=== PATIENT | male | born 1970 | race African-American/Black ===

== ENCOUNTER → 2017-10-11 | Outpatient (CLI) | payer OTHER ==
--- NOTE | 2017-10-11 14:18 | MR ---
EXAMINATION TYPE: MR lumbar spine wo con DATE OF EXAM: 10/11/2017 COMPARISON: NONE HISTORY: Low back pain TECHNIQUE: Multiplanar, multisequence images of the lumbar spine were acquired. FINDINGS: There is somewhat patchy bone marrow signal throughout the lumbar spine although overall th ere is increased bone marrow signal in comparison to that of the disc spaces. No focal T1/T2 hypointe nse suspicious osseous lesions are seen. Multilevel disc desiccation is present at L3-L4, L4-5 and L5 -S1. Conus medullaris is unremarkable terminating at L1-L2. L1-L2: Normal disc appearance without desiccation. No herniation, protrusion or disc bulging. No ca nal stenosis is present. Foramina are patent bilaterally. L2-L3: Normal disc appearance without desiccation. No herniation, protrusion or disc bulging. No ca nal stenosis is present. Foramina are patent bilaterally. L3-L4: There is a broad-based disc bulge with flattening in the disc posteriorly resulting in minimal bilateral neural foraminal narrowing without spinal canal stenosis. Mild facet arthropathy and ligam entum flavum buckling are also present. L4-L5: There is a left eccentric broad-based disc bulge with left lateral annular tear creating moder ate left neural foraminal stenosis and mild right neural foraminal stenosis. No significant spinal ca nal stenosis is seen and despite mild ligamentum flavum buckling and mild facet arthropathy. L5-S1: There is a small right paracentral disc protrusion/herniation superimposed upon a broad-based disc bulge creating moderate right neural foraminal narrowing. Left neural foramen and spinal canal a re patent. In addition to slight mass effect upon the L5 nerve root on the right there is also slight mass effect upon the forming S1 nerve root. IMPRESSION: 1. Small right paracentral disc protrusion/herniation at L5-S1 resulting in moderate right neural for aminal narrowing with mass effect upon both the L5 and forming S1 right-sided nerve roots. 2. Degenerative disc disease at L3-L4 and L4-L5 creating moderate left neural foraminal narrowing and mild right neural foraminal narrowing at L4-L5 and minimal bilateral neural foraminal narrowing at L 3-L4. 3. No evidence of spinal canal stenosis. 4. Slightly patchy bone marrow signal throughout the lumbar spine without focal osseous suspicious le ángel. Correlate with CBC to evaluate for anemia or myeloproliferative disorders.
== END | disposition home or self-care (01) ==
LOC: RADMRIMAIN 13:19
PROVIDERS: ATTEND Psychiatry & Neurology Neurology
DX: M51.27 Other intervertebral disc displacement, lumbosacral region (principal); M99.73 Connective tissue and disc stenosis of intervertebral foramina of lumbar region; M51.36 Other intervertebral disc degeneration, lumbar region; M53.86 Other specified dorsopathies, lumbar region
CPT/HCPCS: 72148

== ENCOUNTER → 2017-11-15 | Outpatient (CLI) | payer OTHER ==
--- NOTE | 2017-11-15 11:24 | MR ---
EXAMINATION TYPE: MR brain wo con DATE OF EXAM: 11/15/2017 COMPARISON: NONE HISTORY: Dizziness and giddiness / Headache TECHNIQUE: Multiplanar, multisequence images of the brain and brainstem is performed without intravenous contras t. FINDINGS: Diffusion weighted images demonstrate no evidence of a recent infarct or other diffusion ab normality. There is no extra-axial fluid collection. Multiple T2/IR hyperintense foci are scattered throughout the periventricular and subcortical white matter with the largest most confluent on the ri ght periatrial white matter measuring up to 9 mm. No restricted diffusion is seen of these foci. The largest on the left measures 1.0 cm in the frontal lobe in the kovacs radiata. Small normal variant cavum septum pellucidum is incidentally noted. The ventricular system and cisternal spaces are normal in size and appearance. The brain volume is age appropriate. Midline structures demonstrate normal morphology. The craniocervical junction appears within normal limits. The dural venous sinuses appear patent. The globes are intact. In the left maxillary sinus t here is a 1.4 cm anterior mucosal retention cyst and second 1.2 cm mucosal retention cyst in addition to moderate mucosal thickening in the maxillary sinuses are seen. Mild mucosal thickening is seen in the ethmoid sinuses. Scant mucosal thickening is present within the right frontal sinus. Remaining v isualized paranasal sinuses and mastoid air cells are well aerated. The right vertebral artery is nonvisualized and may be extremely diminutive/hypoplastic or occluded. Remaining major intracranial flow voids are maintained. IMPRESSION: 1. No acute infarct, midline shift or mass effect. 2. Right vertebral artery is nonvisualized and may be extremely diminutive/hypoplastic or occluded. C TA head/neck or MRA head/neck study performed for further evaluation. 3. Moderate burden nonspecific white matter change, advanced for the patient's age. This most commonl y relates to sequela of chronic microangiopathy, vascularity or demyelinating disease. 4. Moderate paranasal sinus disease with multiple left maxillary mucosal retention cysts.
== END | disposition home or self-care (01) ==
LOC: RADMRIMAIN 09:52
PROVIDERS: ATTEND Psychiatry & Neurology Neurology
DX: R90.89 Other abnormal findings on diagnostic imaging of central nervous system (principal); R42 Dizziness and giddiness; R51 Headache
CPT/HCPCS: 70551

== ENCOUNTER 2018-07-05 09:19 | Emergency (ER) | payer OTHER ==
[2018-07-05 09:35] VITALS: RESP 18; TEMP 98.1
[2018-07-05] MEDS ORDERED: SODIUM CHLORIDE 0.9% 1,000 ML IV STA ×2 (09:42)
[2018-07-05] MEDS ORDERED: SODIUM CHLORIDE 0.9% 500 ML 500 ML IV STA (09:42)
--- NOTE | 2018-07-05 09:43 | ED ---
Recheck HPI - General Chief Complaint: Recheck/Abnormal Lab/Rx Stated Complaint: hyperglycemia Time Seen by Provider: 07/05/18 09:38 Source: patient, RN notes reviewed, old records reviewed Mode of arrival: ambulatory Limitations: no limitations - History of Present Illness Initial Comments: This is a 47-year-old male the ER for evaluation. Patient does say for evaluation regarding multiple issues, first is his blood sugar secondary to diabetes secondary she was depression secondary to holiday, posttraumatic stress. Patient denies drugs or alcohol today. Patient's been taking medication as prescribed MD Complaint: abnormal lab (Elevated blood sugar) -: days(s) Returns Today for: persistent/worsening pain related to initial visit ( Depression) Symptoms Since Prior Visit: no new symptoms Associated Symptoms: none - Related Data Home Medications Medication Instructions Recorded Confirmed Divalproex [Depakote] 1,000 mg PO HS 11/11/14 07/05/18 [place]-3 Fatty Acids/Fish Oil [Fish 1 cap PO DAILY 11/11/14 07/05/18 Oil 1,000 mg Softgel] Omeprazole [PriLOSEC] 20 mg PO AC-BID 11/11/14 07/05/18 metFORMIN HCL 1,000 mg PO BID 11/11/14 07/05/18 Lisinopril/Hydrochlorothiazide 1 tab PO DAILY 07/05/18 07/05/18 [Zestoretic 20-12.5] Methocarbamol [Robaxin] 1,000 mg PO TID PRN 07/05/18 07/05/18 Prazosin HCl 4 mg PO HS 07/05/18 07/05/18 Sertraline [Zoloft] 100 mg PO DAILY 07/05/18 07/05/18 Ziprasidone [Geodon] 40 mg PO BID 07/05/18 07/05/18 glipiZIDE [Glucotrol] 10 mg PO BID 07/05/18 07/05/18 Allergies Allergy/AdvReac Type Severity Reaction Status Date / Time No Known Allergies Allergy Verified 07/05/18 09:58 Review of Systems ROS Statement: Those systems with pertinent positive or pertinent negative responses have been documented in the HPI. ROS Other: All systems not noted in ROS Statement are negative. 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 Absent: scleral icterus, conjunctival injection, periorbital swelling ENT exam: Present: normal exam, mucous membranes moist Neck exam: Present: normal inspection. Absent: tenderness, meningismus, lymphadenopathy Respiratory exam: Present: normal lung sounds bilaterally. Absent: respiratory distress, wheezes, rales, rhonchi, stridor Cardiovascular Exam: Present: regular rate, normal rhythm, normal heart sounds. Absent: systolic murmur, diastolic murmur, rubs, gallop, clicks GI/Abdominal exam: Present: soft, normal bowel sounds. Absent: distended, tenderness, guarding, rebound, rigid Extremities exam: Present: normal inspection, full ROM, normal capillary refill. Absent: tenderness, pedal edema, joint swelling, calf tenderness Back exam: Present: normal inspection Neurological exam: Present: alert, oriented X3, CN II-XII intact Psychiatric exam: Present: normal affect, normal mood Skin exam: Present: warm, dry, intact, normal color. Absent: rash Course Vital Signs 07/05/18 09:31 Temperature 98.1 F Pulse Rate 117 H Respiratory 18 Rate Blood Pressure 152/92 O2 Sat by Pulse 99 Oximetry - Reevaluation(s) Reevaluation #1: 07/05/18 13:24 Patient was made medically clear for psychiatric evaluation Patient seen and evaluated with psychiatry, deemed safe for discharge home, patient feels safe for discharge home not homicidal or suicidal, does have safe place to go Medical Decision Making - Medical Decision Making 47 male seen evaluated with psychiatry for depression, patient is not suicidal currently can be discharged home. Patient's blood sugars control - Lab Data Result diagrams: 07/05/18 10:02 07/05/18 10:02 Lab Results 07/05/18 07/05/18 07/05/18 Range/Units 10:02 10:02 10:02 WBC (3.8-10.6) k/uL RBC (4.30-5.90) m/uL Hgb (13.0-17.5) gm/dL Hct (39.0-53.0) % MCV (80.0-100.0) fL MCH (25.0-35.0) pg MCHC (31.0-37.0) g/dL RDW (11.5-15.5) % Plt Count (150-450) k/uL Neutrophils % % Lymphocytes % % Monocytes % % Eosinophils % % Basophils % % Neutrophils # (1.3-7.7) k/uL Lymphocytes # (1.0-4.8) k/uL Monocytes # (0-1.0) k/uL Eosinophils # (0-0.7) k/uL Basophils # (0-0.2) k/uL VBG pH 7.41 (7.31-7.41) VBG pCO2 33 L (37-51) mmHg VBG HCO3 20 L (24-28) mmol/L Sodium 140 (137-145) mmol/L Potassium 3.8 (3.5-5.1) mmol/L Chloride 108 H (98-107) mmol/L Carbon Dioxide 20 L (22-30) mmol/L Anion Gap 12 mmol/L BUN 12 (9-20) mg/dL Creatinine 1.08 (0.66-1.25) mg/dL Est GFR (CKD-EPI)AfAm >90 (>60 ml/min/1.73 sqM) Est GFR (CKD-EPI)NonAf 82 (>60 ml/min/1.73 sqM) Glucose 205 H (74-99) mg/dL POC Glucose (mg/dL) (75-99) mg/dL POC Glu Adon ID Calcium 9.2 (8.4-10.2) mg/dL Phosphorus 3.8 (2.5-4.5) mg/dL Magnesium 1.5 L (1.6-2.3) mg/dL Total Bilirubin 0.5 (0.2-1.3) mg/dL AST 25 (17-59) U/L ALT 27 (21-72) U/L Alkaline Phosphatase 35 L (38-126) U/L Total Creatine Kinase 153 (55-170) U/L CK-MB (CK-2) 0.5 (0.0-2.4) ng/mL CK-MB (CK-2) Rel Index 0.3 Troponin I <0.012 (0.000-0.034) ng/mL Total Protein 6.9 (6.3-8.2) g/dL Albumin 4.1 (3.5-5.0) g/dL Urine Color Urine Appearance (Clear) Urine pH (5.0-8.0) Ur Specific [place] (1.001-1.035) Urine Protein (Negative) Urine Glucose (UA) (Negative) Urine Ketones (Negative) Urine Blood (Negative) Urine Nitrite (Negative) Urine Bilirubin (Negative) Urine Urobilinogen (<2.0) mg/dL Ur Leukocyte Esterase (Negative) Acetone, Qual Negative (Negative) 07/05/18 07/05/18 07/05/18 Range/Units 10:02 10:11 11:20 WBC 4.8 (3.8-10.6) k/uL RBC 4.75 (4.30-5.90) m/uL Hgb 14.7 (13.0-17.5) gm/dL Hct 41.0 (39.0-53.0) % MCV 86.5 (80.0-100.0) fL MCH 30.9 (25.0-35.0) pg MCHC 35.8 (31.0-37.0) g/dL RDW 14.6 (11.5-15.5) % Plt Count 189 (150-450) k/uL Neutrophils % 59 % Lymphocytes % 33 % Monocytes % 5 % Eosinophils % 2 % Basophils % 0 % Neutrophils # 2.8 (1.3-7.7) k/uL Lymphocytes # 1.6 (1.0-4.8) k/uL Monocytes # 0.2 (0-1.0) k/uL Eosinophils # 0.1 (0-0.7) k/uL Basophils # 0.0 (0-0.2) k/uL VBG pH (7.31-7.41) VBG pCO2 (37-51) mmHg VBG HCO3 (24-28) mmol/L Sodium (137-145) mmol/L Potassium (3.5-5.1) mmol/L Chloride (98-107) mmol/L Carbon Dioxide (22-30) mmol/L Anion Gap mmol/L BUN (9-20) mg/dL Creatinine (0.66-1.25) mg/dL Est GFR (CKD-EPI)AfAm (>60 ml/min/1.73 sqM) Est GFR (CKD-EPI)NonAf (>60 ml/min/1.73 sqM) Glucose (74-99) mg/dL POC Glucose (mg/dL) 214 H (75-99) mg/dL POC Glu Adon ID Calcium (8.4-10.2) mg/dL Phosphorus (2.5-4.5) mg/dL Magnesium (1.6-2.3) mg/dL Total Bilirubin (0.2-1.3) mg/dL AST (17-59) U/L ALT (21-72) U/L Alkaline Phosphatase (38-126) U/L Total Creatine Kinase (55-170) U/L CK-MB (CK-2) (0.0-2.4) ng/mL CK-MB (CK-2) Rel Index Troponin I (0.000-0.034) ng/mL Total Protein (6.3-8.2) g/dL Albumin (3.5-5.0) g/dL Urine Color Yellow Urine Appearance Clear (Clear) Urine pH 6.0 (5.0-8.0) Ur Specific [place] 1.011 (1.001-1.035) Urine Protein Negative (Negative) Urine Glucose (UA) 3+ H (Negative) Urine Ketones Negative (Negative) Urine Blood Negative (Negative) Urine Nitrite Negative (Negative) Urine Bilirubin Negative (Negative) Urine Urobilinogen <2.0 (<2.0) mg/dL Ur Leukocyte Esterase Negative (Negative) Acetone, Qual (Negative) - EKG Data -: EKG Interpreted by Me (EKG shows sinus rhythm rate of 83, OK 184, QRS 136, QTc 498) Disposition Clinical Impression: Hypoglycemia, Depression Disposition: HOME SELF-CARE Condition: Good Instructions: Depression (ED) Is patient prescribed a controlled substance at d/c from ED?: No Referrals: [facility],Clinic [Primary Care Provider] - 1-2 days
[2018-07-05 10:14] LABS: Glucose,Whole Blood 214 mg/dL (75-99)
[2018-07-05 10:27] LABS: Basophils % (A) 0 %; Eosinophils # (A) 0.1 k/uL (0-0.7); Eosinophils % (A) 2 %; HGB 14.7 gm/dL (13.0-17.5); Lymphocytes # (A) 1.6 k/uL (1.0-4.8); Lymphocytes % (A) 33 %; MCH 30.9 pg (25.0-35.0); MCHC 35.8 g/dL (31.0-37.0); MCV 86.5 fL (80.0-100.0); Mean Platelet Volume 7.2; Monocytes # (A) 0.2 k/uL (0-1.0); Monocytes % (A) 5 %; Neutrophils # (A) 2.8 k/uL (1.3-7.7); Neutrophils % (A) 59 %; Platelet Count 189 k/uL (150-450); RBC 4.75 m/uL (4.30-5.90); RDW 14.6 % (11.5-15.5); WBC 4.8 k/uL (3.8-10.6)
[2018-07-05 10:29] LABS: VBG PH 7.41 (7.31-7.41)
[2018-07-05 10:45] LABS: ALT 27 U/L (21-72); AST 25 U/L (17-59); Albumin 4.1 g/dL (3.5-5.0); Alkaline Phosphatase 35 U/L (38-126); Anion Gap 12 mmol/L; Blood Urea Nitrogen 12 mg/dL (9-20); Calcium 9.2 mg/dL (8.4-10.2); Carbon Dioxide 20 mmol/L (22-30); Chloride 108 mmol/L (98-107); Glucose 205 mg/dL (74-99); Magnesium 1.5 mg/dL (1.6-2.3); Phosphorus 3.8 mg/dL (2.5-4.5); Potassium 3.8 mmol/L (3.5-5.1); Sodium 140 mmol/L (137-145); Total Bilirubin 0.5 mg/dL (0.2-1.3); Total Protein 6.9 g/dL (6.3-8.2)
[2018-07-05 11:04] LABS: Creatine Kinase 153 U/L (55-170)
[2018-07-05 11:17] LABS: Creatine Kinase MB 0.5 ng/mL (0.0-2.4); Troponin I <0.012 ng/mL (0.000-0.034)
[2018-07-05 11:39] LABS: Appearance,Urine Clear (Clear); Bilirubin,Urine Negative (Negative); Blood,Urine Negative (Negative); Color,Urine Yellow; Glucose,Urine (UA) 3+ (Negative); Ketones,Urine Negative (Negative); Leukocyte Esterase,Urine Negative (Negative); Nitrite,Urine Negative (Negative); Protein,Urine Negative (Negative); Specific Gravity,Urine 1.011 (1.001-1.035); Urobilinogen,Urine <2.0 mg/dL (<2.0)
[2018-07-05 14:02] VITALS: BP 136/72; PULSE 84
== END 2018-07-05 14:35 | disposition home or self-care (01) ==
LOC: EC 09:19
DX: E11.649 Type 2 diabetes mellitus with hypoglycemia without coma (principal); F32.9 Major depressive disorder, single episode, unspecified; I10 Essential (primary) hypertension; F43.10 Post-traumatic stress disorder, unspecified; F17.200 Nicotine dependence, unspecified, uncomplicated; Z79.899 Other long term (current) drug therapy; Z79.84 Long term (current) use of oral hypoglycemic drugs
CPT/HCPCS: 36415; 80053; 81003; 82009; 82550; 82553; 82803; 83735; 84100; 84484; 85025; 87086; 93005; 96360; 96361; 99284

== ENCOUNTER → 2018-09-05 | Outpatient (CLI) | payer OTHER ==
[2018-09-05 11:32] VITALS: BP 105/74; PULSE 75; RESP 18
--- NOTE | 2018-09-05 12:20 | P.PAINCN ---
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 He denies any motor or sensory deficit he denies any change in the bowel movement or urination. 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 Past Anesthesia/Blood Transfusion Reactions: No Reported Reaction Past Psychological History: PTSD Smoking Status: Never smoker Past Alcohol Use History: None Reported Past Drug Use History: None Reported Medications and Allergies Home Medications Medication Instructions Recorded Confirmed Type Divalproex [Depakote] 1,000 mg PO HS 11/11/14 09/05/18 History [place]-3 Fatty Acids/Fish Oil [Fish 1 cap PO DAILY 11/11/14 09/05/18 History Oil 1,000 mg Softgel] Omeprazole [PriLOSEC] 20 mg PO AC-BID 11/11/14 09/05/18 History metFORMIN HCL 1,000 mg PO BID 11/11/14 09/05/18 History Lisinopril/Hydrochlorothiazide 1 tab PO DAILY 07/05/18 09/05/18 History [Zestoretic 20-12.5] Prazosin HCl 6 mg PO HS 07/05/18 09/05/18 History Sertraline [Zoloft] 200 mg PO DAILY 07/05/18 09/05/18 History Ziprasidone [Geodon] 60 mg PO BID 07/05/18 09/05/18 History glipiZIDE [Glucotrol] 10 mg PO BID 07/05/18 09/05/18 History Acetaminophen 650 mg PO DIRECTED PRN 09/05/18 09/05/18 History Saxagliptin HCl [Onglyza] 5 mg PO DAILY 09/05/18 09/05/18 History Verapamil Sr [Isoptin Sr] 180 mg PO DAILY 09/05/18 09/05/18 History Allergies Allergy/AdvReac Type Severity Reaction Status Date / Time No Known Allergies Allergy Verified 09/05/18 11:01 Physical Exam Vitals: Vital Signs Pulse Resp BP Pulse Ox 09/05/18 11:21 75 18 105/74 98 Intake and Output 09/04/18 09/05/18 09/05/18 22:59 06:59 14:59 Other: Weight 96.162 kg Social history : not smoker , NO ETOH , NO Illegal drugs use . Review of Systems : 1- Constitutional : no chills , no fever , no night sweats , 2- Ears : no ear discharge , no change in hearing 3-Nose, Mouth ,Throat ; no bleeding gums, no sore throat , no epistaxis , 4-Cardiovascular : Denies chest pain, , no orthopnea , no palpitation 5-Respiratory : Denies cough , no dyspnea , no hemoptysis 6-Gastrointestinal :, no change in bowel habits , no coffee- ground emesis . 7-Genitourinary : No hematuria , no discharge , no incontinence, 8-Musculoskeletal : No gait dysfunction , report low back pain , 9- Neurological : no ataxia , no tremor , no sezure , 10-Psychatric , no suicidal ideation no hallucination 11- Endocrine : no cold intolerence , no polyuria , no polydypsia , 12-Hematologic : no easy bleeding , no easy brusing , 13-Allergic / immunology : no angioedema , no wheezing ,no allergic rhinitis 14-Integumentary : no brttle nails , no change hair / nails , no foot/leg ulcers . Physical Examinations : 1-Constitutional : Cooperative , not in acute distress . 2-HEENT : nech ; supple , no Lymphadenopathy , no Thyromegaly , :eyes , no icterus, no photophobia . ENT : , normal oropharynx , no Thrush 3- Respiratory : Chest clear to auscultations Bilaterally , no wheezing 4- Cardiovascular : regular rate and rhythem , S1 , S2 , no S3 , no S4. 5- Gastrointestinal: abdomen soft no tenderness , no organomegally . 6- Genitourinary : Defferred . 7-Integumentary : No cellulitis , no ulcers , normal skin turgor , no cyanotic . 8- neurologic : Cranial nerve II to XII intact , no focal neurological deffecit 9-psychatric : alert , oriented X 3 , appropriate affect , intact judgment and insight . 10-Lymphatic : no Lymphadenopathy. 11- musculoskeltal: normal gait Lumber spine moter stegnth lower extremities ,thigh and legs 5/5 Right side , 5/5 Left side deep tendon reflexes : normal Knee Jerk , normal ankle Jerk positive lumber facet Loading Test on the right side only , negative on the left side Range of motion of the lumbar spine Flexion 60 degrees, extension 10 degrees strait leg raising test negative bilaterally Fabere test negative bilaterally Sever tenderness over the Sacroiliac joint on the Right side . Results Comments: MRI of the lumbar spine done at [facility] showed multilevel lumbar bulging disc disease and multilevel lumbar facet arthropathy and L5-S1 disc herniation Assessment and Plan Plan: Assessment and plan= chronic severe low back pain secondary to multifactorial causes, lumbar spondylosis with lumbar facet arthropathy, lumbar disc herniation And lumbar bulging disc disease. The clinical picture , and the physical examination supported that most of the pain is coming From the facetogenic component, I will schedule patient to have right sided diagnostic medial branch block lumbar area at C4/L4-L5/L5-S1 , x2 and benefits positive then we will proceed with a radiofrequency ablation of the medial branch lumbar area( RIGHT SIDE ) Time with Patient: Greater than 30 PQRS Measure Charge Sheet Measure #130: Documentation of Current Meds in Medical Chart: Patient's medications documented in chart Measure #226: Tobacco Use: Screen & Cessation Intervention: Pt not a tobacco user Measure #111: Pneumonia Vaccination: Pneumococcal vaccine NOT administered or previously given Measure #47: Advance Care Plan: Advance care planning discussed & documented, pt chose/unable to give Measure #412: Opioid Treatment Agreement: No documentation of signed opioid treatment agreement Measure #408: Opioid Therapy Follow-up Evaluation: Patient had NO f/u eval minimum every 3 months during opioid therapy Measure #317: Preventitive Care & Scrn High Bld Press & F/U: Normal blood pressure, f/u not required Measure #128: Body Mass Index (BMI) Screening & Follow-up: BMI documented ABOVE normal parameters - f/u documented Measure #131: Pain Assessment & Follow-up: Pain positive & plan documented, Follow-up scheduled Measure #431: Unhealthy Alcohol Use Preventative Care & Scrn: Patient not identified as an unhealthy alcohol user PQRS Narrative: Smoking Status Never smoker Do You Want the Pneumonia No Vaccine AT THIS TIME? Blood Pressure 105/74 Pain Intensity [Right Lower 9 Back] Hx Alcohol Use (MH) Yes: social Home Medications: Ambulatory Orders Divalproex [Depakote] 1,000 mg PO HS 11/11/14 [place]-3 Fatty Acids/Fish Oil [Fish Oil 1,000 mg Softgel] 1 cap PO DAILY Omeprazole [PriLOSEC] 20 mg PO AC-BID 11/11/14 metFORMIN HCL 1,000 mg PO BID 11/11/14 Lisinopril/Hydrochlorothiazide [Zestoretic 20-12.5] 1 tab PO DAILY 07/05/18 Prazosin HCl 6 mg PO HS 07/05/18 Sertraline [Zoloft] 200 mg PO DAILY 07/05/18 Ziprasidone [Geodon] 60 mg PO BID 07/05/18 glipiZIDE [Glucotrol] 10 mg PO BID 07/05/18 Acetaminophen 650 mg PO DIRECTED PRN 09/05/18 Saxagliptin HCl [Onglyza] 5 mg PO DAILY 09/05/18 Verapamil Sr [Isoptin Sr] 180 mg PO DAILY 09/05/18
== END ==
LOC: PNWHC3 10:44
PROVIDERS: ATTEND Specialist
DX: M51.26 Other intervertebral disc displacement, lumbar region (principal); M47.816 Spondylosis without myelopathy or radiculopathy, lumbar region; M46.96 Unspecified inflammatory spondylopathy, lumbar region; E11.9 Type 2 diabetes mellitus without complications; E78.5 Hyperlipidemia, unspecified; I10 Essential (primary) hypertension; Z79.899 Other long term (current) drug therapy; Z79.84 Long term (current) use of oral hypoglycemic drugs
CPT/HCPCS: 99211

== ENCOUNTER 2018-09-18 09:47 | Day surgery (SDC) | payer OTHER ==
[~2018-09-18 09:47] MED LIST: SODIUM CHLORIDE 0.9% 500 ML 500 ML IV SCH
[2018-09-18 10:06] VITALS: RESP 16; TEMP 97.9
[2018-09-18 10:07] LABS: Glucose,Whole Blood 162 mg/dL (75-99)
[2018-09-18] MEDS ORDERED: LACTATED RINGERS 1,000 ML IV ONE (10:08)
[2018-09-18] MEDS ORDERED: LIDOCAINE 1% 20 ML VIAL (10MG/ML) FOR IV START INTRADERMA ONE (10:09)
--- NOTE | 2018-09-18 10:39 | P.PCN ---
Date of Procedure: 09/18/18 Procedure(s) Performed: PREOPERATIVE DIAGNOSIS : 1- Lumbar spondylosis with Facet Arthropathy without myelopathy . POSTOPERATIVE DIAGNOSIS: 1- Lumbar spondylosis with Facet Arthropathy without myelopathy . PROCEDURE: Diagnostic Right L3 -4 , L4 -5 , and L5-S1 medial branch block under fluoroscopy ANESTHESIA: Local with Ropivacain 0.5 % 3 ml , moderate sedation with intravenous Versed 2 mg and Fentanyl 50 mcg. EBL: Minimal COMPLICATION: None. IV FLUIDS: 100 mL of normal saline. PROCEDURE INDICATION: Chronic low back pain secondary to Facet arthropathy unresponsive to conservative treatment. PROCEDURE DESCRIPTION: the patient was seen and identified in the preop holding area , risks and benefits and possible complications of the procedure and alternative were discussed with the patient, and the patient agreed to proceed with the procedure and signed the consent IV was started and vital signs monitored during the procedure and fluoroscopy was used to maximize the benefit and accuracy of the needle placement, and sedation was given to decrease patient anxiety, patient was taken to the procedure room and placed in prone position vital signs monitored in the back prepped with chlorhexidine X3 then under strict sterile technique using a right oblique fluoroscopy ,the junction of the transverse process and the superior articulating process of the right L3- 4 , L4- 5, and L5-S1 vertebra which corresponding to the fluoroscopy image of the eye of the Urban dog on the block side for the medial branches and subsequently , after local infiltration of skin and subcu tissuies with Ropivacaine 0.5 % , one mL at each level , then 22-gauge Quincke-type needles , 3 needle was used , each one of them placed at the junction of the base of the transverse process and the superior articular process at the appropriate level, and the needle was advanced until the periosteum contacted, needle placement confirmed with AP oblique and lateral view and after appropriate needle placement confirmed, and after negative aspiration for heme and CSF and there was no paresthesia 1-1/2 mL of Ropivacaine 0.5% mixed with 40 mg Depo-Medrol , then half mL injected at each level after negative aspiration the needle subsequently removed.. At the end of the procedure and the needles removed and a bandage applied after the skin was cleaned the cleaning solution patient taken to recovery room in stable condition and monitors in the recovery room for 20-30 minutes and discharged home in stable condition after discharge criteria met and patient will follow up with the pain clinic in 2-4 weeks
[2018-09-18] MEDS ORDERED: IV FLUID CONTINUATION 400 ML IV ONE (10:45)
[2018-09-18 11:07] VITALS: BP 140/87
[2018-09-18 11:09] VITALS: PULSE 91
--- NOTE | 2018-09-18 12:56 | FL ---
Fluoroscopy INDICATION: Pain FINDINGS: Fluoroscopy time: 6 seconds. Images obtained: 2. IMPRESSIONS: 1. Documentation of fluoroscopy.
== END 2018-09-18 11:15 | disposition home or self-care (01) ==
LOC: ORPAIN 09:47
PROVIDERS: ATTEND Specialist
DX: G89.29 Other chronic pain (principal); M47.816 Spondylosis without myelopathy or radiculopathy, lumbar region; M51.26 Other intervertebral disc displacement, lumbar region; E11.9 Type 2 diabetes mellitus without complications; E78.5 Hyperlipidemia, unspecified; I10 Essential (primary) hypertension; F43.10 Post-traumatic stress disorder, unspecified; G43.909 Migraine, unspecified, not intractable, without status migrainosus; Z79.84 Long term (current) use of oral hypoglycemic drugs; Z79.899 Other long term (current) drug therapy
CPT/HCPCS: 64493; 64494; 64495; J2250; J1030; J3010

== ENCOUNTER → 2018-09-20 | Outpatient (CLI) | payer MEDICARE, OTHER ==
--- NOTE | 2018-09-20 08:13 | MR ---
EXAMINATION TYPE: MR brain/cspine wo DATE OF EXAM: 09/20/2018 COMPARISON: MRI Brain dated 11/15/2017. HISTORY: Migraines Headaches / Neuropathy with pain or weakness into both arms and fingers per patien t. TECHNIQUE: Multiplanar, multisequence imaging of the cervical spine, brain, and brainstem is performe d without IV contrast. FINDINGS: BRAIN: Diffusion weighted images demonstrate no evidence of a recent infarct or other diffusion abnormality. There is no worrisome extra-axial fluid collection. The ventricular system and cisternal spaces are normal in size and appearance. The brain volume is age appropriate. There is redemonstration of scat tered foci T2 hyperintensity throughout the superficial, deep, and periventricular white matter. I es timate 50-70 scattered small lesions with largest lesion being a elongated 10 mm left frontal lesion or 2 adjacent lesions axial image 26. No significant change from prior. Midline structures demonstrate normal morphology. The craniocervical junction appears within normal limits. There is nonvisualization of distal right vertebral artery consistent with hypoplasia or judy edly small caliber. Few small mucous retention cysts or polyps and mucosal thickening inferior aspect bilateral maxillary sinuses remains present without significant interval change. The globes are inta ct bilaterally. IMPRESSION: Fairly moderate to severe nonspecific white matter changes may be related to altered vasc ular flow as product of chronic migraine headaches, other etiologies such as demyelinating disease ne eds to be excluded in patient of this age. Correlate clinically. Chronic inferior maxillary sinus dis ease redemonstrated. Overall no significant change from prior MRI. C-SPINE: Exam noted suboptimal as there is motion artifact degradation present. FINDINGS: Sagittal images of the cervical spine show the craniocervical junction to appear within nor mal limits. The cervical and upper thoracic spinal cord is normal in course, caliber, and signal. V ertebral alignment is anatomic. The vertebral body and intravertebral disk heights are normal. No l arge posterior disc herniations are seen on sagittal images. The bone marrow signal intensity is with in normal limits. No significant spurring is seen. Axial images at the C3-C4 level show uncovertebral facet degenerative changes bilaterally causing mil d to moderate left greater than right bilateral neural foraminal narrowing. Axial images at C5-C6 and C6-C7 level show tiny central disc protrusions minimally effacing anterior thecal sac, at C6-C7 level there is left foraminal component causing mild to moderate left-sided neur al foraminal narrowing on axial image 17. Other cervical levels felt within normal limits. IMPRESSION: Mild multilevel degenerative changes as detailed above.
== END | disposition home or self-care (01) ==
LOC: RADMRIMAIN 06:14
PROVIDERS: ATTEND Family Medicine
DX: G43.909 Migraine, unspecified, not intractable, without status migrainosus (principal); M47.812 Spondylosis without myelopathy or radiculopathy, cervical region; G62.9 Polyneuropathy, unspecified; R90.89 Other abnormal findings on diagnostic imaging of central nervous system
CPT/HCPCS: 70551; 72141

== ENCOUNTER 2018-09-27 06:57 | Day surgery (SDC) | payer MEDICARE, OTHER ==
[2018-09-26 12:28] VITALS: BMI 29.1
[~2018-09-27 06:57] MED LIST changes: +LACTATED RINGERS 1,000 ML IV SCH; +LIDOCAINE 1% 20 ML VIAL (10MG/ML) FOR IV START INTRADERMA PRN; +MIDAZOLAM (PF) 2 MG/2 ML VIAL IV PRN; -SODIUM CHLORIDE 0.9% 500 ML 500 ML IV SCH
[2018-09-27 07:28] VITALS: RESP 16; TEMP 98.6
[2018-09-27 07:31] LABS: Glucose,Whole Blood 164 mg/dL (75-99)
[2018-09-27 08:54] LABS: Glucose,Whole Blood 180 mg/dL (75-99)
[2018-09-27 09:05] VITALS: BP 135/90; PULSE 78
--- NOTE | 2018-09-27 10:12 | P.PCN ---
Date of Procedure: 09/27/18 Procedure(s) Performed: Procedures: 1. Esophagogastroduodenoscopy and biopsy. 2. Colonoscopy and biopsy. Preoperative diagnosis: Chronic reflux symptoms and rectal bleeding. Postoperative diagnosis: 1. Antral gastritis with no active bleeding at the time of the exam. 2. Biopsies obtained from the duodenum, antrum and esophagus. 2. Diverticulosis on the right side with no evidence of acute diverticulitis or strictures. 3. Biopsies obtained from the right colon. 4. Low-grade internal hemorrhoids without bleeding at the time of this exam. Preparation: HalfLytely prep. Sedation: Was provided by anesthesia. Brief clinical history: The patient is a 48-year-old male who is scheduled for this evaluation because of chronic reflux symptoms as well as blood in the stools and altered bowel habits with intermittent diarrhea of recent onset. He , apparently, has been having rectal pain as well No other alarm symptoms. This would be his first upper and lower endoscopy. Procedure: With the patient on his left lateral decubitus position and after informed consent and adequate sedation, I passed the Olympus-GIF H190 video upper endoscope through the cricopharyngeus down the esophagus. GE junction was around 42-43 cm from the incisors and there was no definite hiatal hernia or any obvious esophagitis or complicated reflux disease. The endoscope was then passed into the stomach which was insufflated with air and inspected in detail including the retroflex view in the cardia. There was mottling and erythema in the antrum and scattered erosions and occasional small ulceration with no active bleeding. Pyloric channel did not show any ulcers. Duodenal bulb, post bulbar area and descending duodenum appeared within normal limits. Because of his symptoms, I obtained biopsies from the duodenum, antrum and esophagus then the endoscope was withdrawn and I proceeded with the colonoscopy. Perianal area did not show any fissures or fistulas. There were no masses felt on digital rectal examination. The Olympus CFH 190L video colonoscope was then inserted in the rectum in the usual fashion and advanced to the cecum. The preparation was less than ideal. There were multiple diverticular orifices seen scattered on the right side but no evidence of acute diverticulitis or strictures. The mucosa appeared healthy. No polyps or tumors were seen. There was no evidence of bleeding. I retroflexed the endoscope in the rectum before the endoscope was withdrawn. Low-grade internal hemorrhoids were noted with no evidence of bleeding. The patient tolerated the procedure well. Plan: The patient was reassured. Will await biopsy results. Discussed dietary measures.
== END 2018-09-27 09:52 | disposition home or self-care (01) ==
LOC: ORWHC2ENDO 06:57
DX: K21.0 Gastro-esophageal reflux disease with esophagitis (principal); K57.30 Diverticulosis of large intestine without perforation or abscess without bleeding; K64.8 Other hemorrhoids; K29.70 Gastritis, unspecified, without bleeding; E11.9 Type 2 diabetes mellitus without complications; I10 Essential (primary) hypertension; E78.5 Hyperlipidemia, unspecified; F32.9 Major depressive disorder, single episode, unspecified; F43.10 Post-traumatic stress disorder, unspecified; N40.0 Benign prostatic hyperplasia without lower urinary tract symptoms; M19.90 Unspecified osteoarthritis, unspecified site; G43.909 Migraine, unspecified, not intractable, without status migrainosus; Z79.899 Other long term (current) drug therapy; Z79.84 Long term (current) use of oral hypoglycemic drugs; Z86.718 Personal history of other venous thrombosis and embolism
CPT/HCPCS: 43239; 45380; 88305

== ENCOUNTER 2018-10-02 08:31 | Day surgery (SDC) | payer MEDICARE, OTHER ==
[2018-09-28 13:35] VITALS: BMI 29.1
[2018-10-02 08:50] VITALS: RESP 18; TEMP 97.4
[2018-10-02] MEDS ORDERED: LACTATED RINGERS 1,000 ML IV ONE (09:19)
[2018-10-02] MEDS ORDERED: LIDOCAINE 1% 20 ML VIAL (10MG/ML) FOR IV START INTRADERMA ONE (09:20)
--- NOTE | 2018-10-02 09:25 | P.PCN ---
Date of Procedure: 10/02/18 Anesthesia: MAC (Conscious sedation) Description of Procedure: Surgeon: Alin Morales MD. Procedure: Right lumbar Medial Branch Block at L3/4, L4/5, and L5/S1 #2 IV Sedation with: 2 mg of Versed Anesthesia: Conscious sedation Given for: Anxiety and fear of needles. The patient was seen and examined in the [facility]. Procedure risks and benefits were fully reviewed with the patient. The patient understands this is a diagnostic if local only is used, as will be the case today. The goal of the procedure is to inject medication into the medial branch or small nerves that go into the facet joints. In this way, we can hopefully identify which of these joints, if any, may be contributing to their pain. Informed consent for procedure was obtained. The patient was taken into the office fluoroscopy procedure room and placed prone on the table. A pillow was placed under the abdomen to reduce lumbar lordosis. Vital signs were closely monitored during the procedure. The skin over the area was prepped with Betadine X 3 and draped in usual sterile manner. Sterile technique was observed throughout procedure. Under biplanar fluoroscopic guidance, the target injection area of the L3, L4, L5 and sacral ala bilateral were targeted. A 25 gauge 31/2 inch spinal needle was then placed at the most medial and superior aspect of the transverse process near the "eye of the Urban dog". Aspiration for blood was negative. 1 cc of 0.5% marcaine was injected into the targeted areas separately. Mumford were withdrawn intact. No complications were noted during the procedure. The patient tolerated the procedure well. The patient was placed in supine position and transferred to the recovery area for observation and remained stable until discharged home. Home discharge instructions were given to the patient by the staff. The patient will schedule a follow up as directed.
[2018-10-02 09:38] LABS: Glucose,Whole Blood 285 mg/dL (75-99)
[2018-10-02 09:38] LABS: Glucose,Whole Blood 278 mg/dL (75-99)
[2018-10-02 09:38] LABS: Glucose,Whole Blood 268 mg/dL (75-99)
[2018-10-02] MEDS ORDERED: IV FLUID CONTINUATION 800 ML IV ONE (09:39)
[2018-10-02 10:12] VITALS: BP 122/78; PULSE 80
--- NOTE | 2018-10-02 10:12 | FL ---
EXAMINATION TYPE: FL guided pain mgmt statistic DATE OF EXAM: 10/02/2018 COMPARISON: NONE HISTORY: Right lumbar facet injection fluoroscopic documentation TECHNIQUE: Fluoroscopy. FINDINGS: Fluoroscopic guidance was provided during procedure performed by Dr. Morales. A total of 8 seconds of fluoroscopic time was utilized during the procedure and 0 spot images was acquired. IMPRESSION: As Above.
--- NOTE | 2018-10-04 06:53 | CDI ---
RIGHT side MBB at L3, L4, L5, S1 Outpatient Documentation Clarification Form Date : 10/04/2018 CDS/Flash Oven Operator Name: Frankie Bradley Phone: If any questions, call Radha Guan Ventilator Specialist at [phone] Patient Name: Yimi Ibarra Admit Date: 10/02/2018 Discharge Date: 10/02/2018 ATTENTION: The [facility] Coding Staff appreciate your assistance in clarifying documentation. Please respond to the clarification below the line at the bottom and electronically sign. The [facility] Coding staff will review the response and follow-up if needed. Please note: Queries are made part of the Legal Health Record. If you have any questions, please contact the Ventilator Specialist. Dear , Please clarify whether if Bilateral Medial branch blocks were performed at L3-L4 , L4-L5, L5-S1, as per operative report, three levels were targeted Bilaterally , As per H&P and Anesthesia report and procedure header in Operative notes are conflicting as Right side Lumbar Medial Block was performed . Please clarify: 1. Bilateral Medial branch blocks were performed at L3-L4, L4-L5, L5-S1------- ---------? 2. Right Side Medial branch blocks were performed at L3-L4, L4-L5, L5-S1------ ? Thank you for your kind consideration. MTDD
== END 2018-10-02 10:12 | disposition home or self-care (01) ==
LOC: ORPAIN 08:31
PROVIDERS: ATTEND Hospitalist
DX: M47.816 Spondylosis without myelopathy or radiculopathy, lumbar region (principal); G89.29 Other chronic pain; E11.9 Type 2 diabetes mellitus without complications; E78.5 Hyperlipidemia, unspecified; I10 Essential (primary) hypertension; F43.10 Post-traumatic stress disorder, unspecified; Z79.84 Long term (current) use of oral hypoglycemic drugs; Z79.899 Other long term (current) drug therapy; M51.26 Other intervertebral disc displacement, lumbar region
CPT/HCPCS: 64493; 64494; 64495; J2250

== ENCOUNTER → 2019-02-26 | Outpatient (CLI) | payer OTHER ==
--- NOTE | 2019-02-26 17:50 | MR ---
EXAMINATION TYPE: MR lumbar spine wo con DATE OF EXAM: 02/26/2019 COMPARISON: None HISTORY: Low back pain CONTRAST: 0 mL intravenous Gadavist. TECHNIQUE: Multiplanar, multisequence images of the lumbar spine were acquired. FINDINGS: L5-S1: Mild disc bulge is present without thecal sac contact. This may be greater into the right para central region. No exiting nerve root contact is evident, correlate with radicular symptoms however. No spinal canal stenosis or neural foraminal stenosis present. Disc desiccation is present. L4-L5: Broad-based disc bulge is present with some subligamentous disc extension inferiorly centrally . Significant thecal sac compression is not evident. Disc desiccation is present. There is increased signal on T2-weighted images suggesting an annular tear in the central right paracentral region. Neur al foramen are patent. L3-L4: Broad-based disc bulge has anterior thecal sac flattening. No AP spinal canal stenosis present . Neural foramen are patent. L2-L3: No significant disc bulge or disc herniation. No spinal canal stenosis. No foraminal stenosi s. . L1-L2: No significant disc bulge or disc herniation. No spinal canal stenosis. No foraminal stenosi s. . T12-L1: No significant disc bulge or disc herniation. No spinal canal stenosis. No foraminal stenos is. . IMPRESSION: 1. Disc desiccation L3-4 through L5-S1. 2. Annular tear with mild anterior thecal sac compression L4-5. 3. Disc bulge with mild anterior thecal sac compression L4-5. There is some central subligamentous di sc extension inferiorly. 4. Broad-based disc bulge central and right paracentral L5-S1. Correlate with right L5 radicular symp toms.
== END | disposition home or self-care (01) ==
LOC: RADMRIMAIN 08:17
PROVIDERS: ATTEND Physician Assistant Medical
DX: M51.26 Other intervertebral disc displacement, lumbar region (principal); M51.27 Other intervertebral disc displacement, lumbosacral region; M51.36 Other intervertebral disc degeneration, lumbar region; G95.29 Other cord compression
CPT/HCPCS: 72148

== ENCOUNTER → 2020-11-04 | Outpatient (CLI) | payer OTHER ==
--- NOTE | 2020-11-04 21:57 | MR ---
EXAMINATION TYPE: MR lumbar spine wo con DATE OF EXAM: 11/04/2020 COMPARISON: 02/26/2019 HISTORY: Progressive low back pain CONTRAST: 0 mL intravenous Gadavist. TECHNIQUE: Multiplanar, multisequence images of the lumbar spine were acquired. FINDINGS: L5-S1: Mild disc bulge may be present without thecal sac contact or exiting nerve root contact. No s leobardo canal stenosis. Mild right foraminal narrowing is present . L4-L5: Broad-based disc bulge is present. Some bulging right paracentral region may have mild anterio r thecal sac. No AP spinal canal stenosis is present. The neural foramen are patent. L3-L4: Broad right paracentral right lateral annular tear may be present with mild anterior thecal sa c compression. Focal disc herniation is not identified. No spinal canal stenosis or neural foraminal stenosis is present L2-L3: No significant disc bulge or disc herniation. No spinal canal stenosis. No foraminal stenosi s. L1-L2: No significant disc bulge or disc herniation. No spinal canal stenosis. No foraminal stenosi s. T12-L1: No significant disc bulge or disc herniation. No spinal canal stenosis. No foraminal stenos is. IMPRESSION: 1. Mild disc bulge L5-S1 without thecal sac or nerve root contact at this time. 2. Broad-based disc bulge L4-5 into the right paracentral region with mild anterior thecal sac compre ssion. This may have extended from the central protrusion previous. 3. Broad-based annular tear right paracentral region L3-4, new
== END | disposition home or self-care (01) ==
LOC: RADMRIMAIN 11:05
PROVIDERS: ATTEND Physician Assistant Medical
DX: M51.26 Other intervertebral disc displacement, lumbar region (principal); M51.27 Other intervertebral disc displacement, lumbosacral region; M48.8X6 Other specified spondylopathies, lumbar region
CPT/HCPCS: 72148

== ENCOUNTER → 2020-11-16 | Outpatient (CLI) | payer OTHER ==
[2020-11-16 08:21] VITALS: BP 121/89; PULSE 125; RESP 16; TEMP 98.4
--- NOTE | 2020-11-16 08:38 | P.PAINCN ---
History of Present Illness - Reason for Consult Consult date: 11/16/20 - History of Present Illness This is 50 years old male with chronic history of severe low back pain, with radiation to the lateral aspect of his right lower extremity, symptoms started more than 20 years ago, during his service, and he was complaining of low back pain, but nothing was done to treat his symptoms, patient done chiropractics and physical therapy with only short-term benefit, he described his pain as aching and stabbing pain with some numbness, radiated from the right side of his low back towards the right buttock and the lateral aspect of his right leg, he denies any fever or night sweats. He denies any motor or sensory deficit he denies any change in the bowel movement or urination. 2 years ago patient was seen at [facility] pain clinic, and at that time patient was complaining of pain on the right side only, and we did diagnostic medial branch block lumbar area on the right side, patient had excellent pain relief but we could not proceed with RFA because of insurance issues, currently patient complaining of bilateral pain in the low back area with radiation to the posterior lateral aspect of his right lower extremity Past Medical History Past Medical History: Diabetes Mellitus, GERD/Reflux, Hyperlipidemia, Hypertension, Osteoarthritis (OA) Additional Past Medical History / Comment(s): Chronic back pain, insomnia, migraines History of Any Multi-Drug Resistant Organisms: None Reported Past Surgical History: Orthopedic Surgery Additional Past Surgical History / Comment(s): hx of migraine vazquez /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 Past Anesthesia/Blood Transfusion Reactions: No Reported Reaction Past Psychological History: Anxiety, Depression, PTSD Additional Psychological History / Comment(s): See a psychiatrist Smoking Status: Never smoker Past Alcohol Use History: None Reported Past Drug Use History: None Reported - Past Family History Mother Family Medical History: No Reported History Medications and Allergies Home Medications Medication Instructions Recorded Confirmed Type Divalproex [Depakote] 1,000 mg PO HS 11/11/14 11/10/20 History Eldorado-3 Fatty Acids/Fish Oil [Fish 1 cap PO DAILY 11/11/14 11/10/20 History Oil 1,000 mg Softgel] Omeprazole [PriLOSEC] 20 mg PO AC-BID 11/11/14 11/10/20 History metFORMIN HCL 1,000 mg PO BID 11/11/14 11/10/20 History Lisinopril/Hydrochlorothiazide 1 tab PO QAM 07/05/18 11/10/20 History [Zestoretic 20-12.5] Prazosin HCl 6 mg PO HS 07/05/18 11/10/20 History Sertraline [Zoloft] 200 mg PO HS 07/05/18 11/10/20 History Ziprasidone [Geodon] 60 mg PO BID 07/05/18 11/10/20 History glipiZIDE [Glucotrol] 10 mg PO BID 07/05/18 11/10/20 History Acetaminophen 650 mg PO DIRECTED PRN 09/05/18 11/10/20 History Verapamil Sr [Isoptin Sr] 180 mg PO QAM 09/05/18 11/10/20 History Alogliptin Benzoate [Nesina] 25 mg PO DAILY 01/01/19 11/10/20 History Insulin Glargine [Lantus] 10 units SQ DAILY 01/01/19 11/10/20 History Allergies Allergy/AdvReac Type Severity Reaction Status Date / Time No Known Allergies Allergy Verified 11/10/20 10:12 Physical Exam Vitals: Vital Signs Temp Pulse Resp BP Pulse Ox 11/16/20 08:17 98.4 F 125 H 16 121/89 99 Physical Examinations : -Constitutiona : Cooperative , not in acute distress . -HEENT : nech : supple , no Lymphadenopathy , normal thyroid size . : eyes : no ptosis , no icterus, no photophobia . - neurologic : Cranial nerve II to XII intact , no focal neurological deffecit . -psychatric : alert , oriented X 3 , appropriate affect , intact judgment and insight . -Lymphatic : no Lymphadenopathy . - musculoskeltal : Lumber spine moter stegnth lower extremities ,thigh and legs 5/5 Right side , 5/5 Left side deep tendon reflexes : normal Knee Jerk , normal ankle Jerk lumber facet Loading Test =positive Right , positive Left Range of motion of the lumbar spine Flexion 30 degrees, extension 10 degrees strait leg raising test = negative bilaterally Fabere test= negative bilaterally Sever tenderness over the Sacroiliac joint on the Right , and Left sides Gaenslen test= positive right ,and positive left . Seated flexion test= positive right ,and positive Left . Distraction test= positive bilaterally Sacroiliac compression test= positive bilaterally Results Comments: MRI of the lumbar spine done at [facility] showed multilevel lumbar bulging disc disease and multilevel lumbar facet arthropathy and L5-S1 disc herniation Assessment and Plan Plan: Assessment and plan= chronic severe low back pain secondary to multifactorial causes, lumbar spondylosis with lumbar facet arthropathy, lumbar disc herniation And lumbar bulging disc disease. The clinical picture , and the physical examination supported that most of the pain is coming From the facetogenic component, I will schedule patient to have bilateral diagnostic medial branch block lumbar area at (L3,L4 ,L5 ) L4-L5/L5-S1 , x2 Benefits positive we'll proceed with RFA NOTE= patient heart rate is 110, I explained to the patient that this is sinus tachycardia and he has to follow-up with his primary care regarding his tachycardia Time with Patient: Greater than 30 PQRS Measure Charge Sheet Measure #130: Documentation of Current Meds in Medical Chart: Patient's medications documented in chart Measure #226: Tobacco Use: Screen & Cessation Intervention: Pt not a tobacco user Measure #111: Pneumonia Vaccination: Pneumococcal vaccine NOT administered or previously given Measure #47: Advance Care Plan: Advance care planning discussed & documented, pt chose/unable to give Measure #412: Opioid Treatment Agreement: No documentation of signed opioid treatment agreement Measure #408: Opioid Therapy Follow-up Evaluation: Patient had NO f/u eval minimum every 3 months during opioid therapy Measure #317: Preventitive Care & Scrn High Bld Press & F/U: Normal blood pressure, f/u not required Measure #128: Body Mass Index (BMI) Screening & Follow-up: BMI documented ABOVE normal parameters - f/u documented Measure #131: Pain Assessment & Follow-up: Pain positive & plan documented, Follow-up scheduled Measure #431: Unhealthy Alcohol Use Preventative Care & Scrn: Patient not identified as an unhealthy alcohol user PQRS Narrative: Smoking Status Never smoker Blood Pressure 121/89 Pain Intensity [Lower Back] 7 Scale Used Numeric (1 - 10) Hx Alcohol Use (MH) Yes: social Home Medications: Ambulatory Orders Divalproex [Depakote] 1,000 mg PO HS 11/11/14 Eldorado-3 Fatty Acids/Fish Oil [Fish Oil 1,000 mg Softgel] 1 cap PO DAILY 11/11/14 Omeprazole [PriLOSEC] 20 mg PO AC-BID 11/11/14 metFORMIN HCL 1,000 mg PO BID 11/11/14 Lisinopril/Hydrochlorothiazide [Zestoretic 20-12.5] 1 tab PO QAM 07/05/18 Prazosin HCl 6 mg PO HS 07/05/18 Sertraline [Zoloft] 200 mg PO HS 07/05/18 Ziprasidone [Geodon] 60 mg PO BID 07/05/18 glipiZIDE [Glucotrol] 10 mg PO BID 07/05/18 Acetaminophen 650 mg PO DIRECTED PRN 09/05/18 Verapamil Sr [Isoptin Sr] 180 mg PO QAM 09/05/18 Alogliptin Benzoate [Nesina] 25 mg PO DAILY 01/01/19 Insulin Glargine [Lantus] 10 units SQ DAILY 01/01/19
== END ==
LOC: PNWHC3 08:09
PROVIDERS: ATTEND Specialist
DX: M47.816 Spondylosis without myelopathy or radiculopathy, lumbar region (principal); M51.26 Other intervertebral disc displacement, lumbar region; E11.9 Type 2 diabetes mellitus without complications; E78.5 Hyperlipidemia, unspecified; M19.90 Unspecified osteoarthritis, unspecified site; F32.9 Major depressive disorder, single episode, unspecified; K21.9 Gastro-esophageal reflux disease without esophagitis; I10 Essential (primary) hypertension; F41.9 Anxiety disorder, unspecified; Z79.4 Long term (current) use of insulin
CPT/HCPCS: 99211

== ENCOUNTER 2020-12-11 13:09 | Day surgery (SDC) | payer OTHER ==
[2020-12-09 08:35] VITALS: BMI 30.5
[~2020-12-11 13:09] MED LIST changes: -LIDOCAINE 1% 20 ML VIAL (10MG/ML) FOR IV START INTRADERMA PRN; -MIDAZOLAM (PF) 2 MG/2 ML VIAL IV PRN
[2020-12-11 13:42] VITALS: TEMP 98.4
[2020-12-11 13:56] LABS: Glucose,Whole Blood 205 mg/dL (75-99)
[2020-12-11] MEDS ORDERED: ROPIVACAINE 5MG/ML 20ML VIAL ONE (14:13)
[2020-12-11] MEDS ORDERED: MIDAZOLAM 2 MG/2 ML VIAL ONE (14:13)
[2020-12-11] MEDS ORDERED: TRIAMCINOLONE ACETONIDE 40 MG/ML 1 ML VIAL ONE (14:13)
[2020-12-11] MEDS ORDERED: fentaNYL (PF) 50 MCG/ML 2 ML AMP ONE (14:13)
--- NOTE | 2020-12-11 14:31 | P.PCN ---
Date of Procedure: 12/11/20 Procedure(s) Performed: PREOPERATIVE DIAGNOSIS : 1- Lumbar spondylosis with Facet Arthropathy without myelopathy . 2- Lumber degenerative disc disease POSTOPERATIVE DIAGNOSIS: 1- Lumbar spondylosis with Facet Arthropathy without myelopathy . 2- Lumber degenerative disc disease PROCEDURE: Diagnostic bilateral L3 , L4 , and L5 medial branch block under fluoroscopy guidance(fluoroscopy images available in the radiology Department ) ( To target the facet joint between bilateral L4-5 , and L5-S1 ) ANESTHESIA:, Monitored anesthesia care as per anesthesia department.. EBL: Minimal COMPLICATION: None PROCEDURE INDICATION: Chronic low back pain secondary to Facet arthropathy unresponsive to conservative treatment. PROCEDURE DESCRIPTION: the patient was seen and identified in the preop holding area , risks and benefits and possible complications of the procedure and alternative were discussed with the patient, and the patient agreed to proceed with the procedure and signed the consent and vital signs monitored during the procedure and fluoroscopy was used to maximize the benefit and accuracy of the needle placement, and sedation was given to decrease patient anxiety, patient was taken to the procedure room and placed in prone position vital signs monitored in the back prepped with chlorhexidine X3 then under strict sterile technique using a right oblique fluoroscopy ,the junction of the transverse process and the superior articulating process of the right L3 , L4 , and L5 vertebra which corresponding to the fluoroscopy image of the eye of the Urban dog on the block side for the medial branches and subsequently , after local infiltration of skin and subcu tissuies with Ropivacaine 0.5 % , one mL at each level ,then 22-gauge Quincke-type needles , 3 needle was used , each one of them placed at the junction of the base of the transverse process and the superior articular process at the appropriate level, and the needle was advanced until the periosteum contacted, needle placement confirmed with AP oblique and lateral view and after appropriate needle placement confirmed, and after negative aspiration for heme and CSF and there was no paresthesia 1-1/2 mL of Ropivacaine 0.5% mixed with 20 mg Kenalog , then half mL injected at each level after negative aspiration the needle subsequently removed and the same procedure repeated for the left side at left side at L3 , L4 and L5 levels. At the end of the procedure and the needles removed and a bandage applied after the skin was cleaned the cleaning solution patient taken to recovery room in stable condition and monitors in the recovery room for 20-30 minutes and discharged home in stable condition after discharge criteria met and patient will follow up with the pain clinic in 2-4 weeks
[2020-12-11] MEDS ORDERED: IV FLUID CONTINUATION 1,000 ML IV ONE (14:36)
[2020-12-11 14:45] VITALS: RESP 16
--- NOTE | 2020-12-11 14:50 | FL ---
Fluoroscopy History: Lumbar Facet block 9 sec fl
[2020-12-11 15:00] VITALS: BP 156/103; PULSE 87
== END 2020-12-11 15:27 | disposition home or self-care (01) ==
LOC: ORPAIN 13:09
PROVIDERS: ATTEND Specialist
DX: M47.816 Spondylosis without myelopathy or radiculopathy, lumbar region (principal); M51.36 Other intervertebral disc degeneration, lumbar region; I10 Essential (primary) hypertension; E78.5 Hyperlipidemia, unspecified; E11.9 Type 2 diabetes mellitus without complications; F41.9 Anxiety disorder, unspecified; F32.9 Major depressive disorder, single episode, unspecified; F43.10 Post-traumatic stress disorder, unspecified; K21.9 Gastro-esophageal reflux disease without esophagitis; Z79.84 Long term (current) use of oral hypoglycemic drugs; Z79.899 Other long term (current) drug therapy
CPT/HCPCS: 64493; 64494; J2250; J3301; J3010; J2795

== ENCOUNTER 2020-12-25 09:05 | Day surgery (SDC) | payer OTHER ==
[2020-12-22 15:18] VITALS: BMI 29.5
[2020-12-25] MEDS ORDERED: LACTATED RINGERS 1,000 ML IV ONE (09:15)
[2020-12-25 09:26] VITALS: TEMP 98.2
[2020-12-25 09:32] LABS: Glucose,Whole Blood 197 mg/dL (75-99)
[2020-12-25] MEDS ORDERED: IOPAMIDOL M200 10 ML VIAL ONE (09:35)
[2020-12-25] MEDS ORDERED: TRIAMCINOLONE ACETONIDE 40 MG/ML 1 ML VIAL ONE (09:35)
[2020-12-25] MEDS ORDERED: LIDOCAINE 1% INJ 10MG/ML (20 ML MDV) ONE (09:35)
[2020-12-25] MEDS ORDERED: MIDAZOLAM 2 MG/2 ML VIAL ONE (09:35)
[2020-12-25] MEDS ORDERED: ROPIVACAINE 5MG/ML 20ML VIAL ONE (09:35)
[2020-12-25] MEDS ORDERED: fentaNYL (PF) 50 MCG/ML 2 ML AMP ONE (09:35)
--- NOTE | 2020-12-25 09:53 | P.PCN ---
Date of Procedure: 12/25/20 Description of Procedure: PREOPERATIVE DIAGNOSIS : 1- Lumbar spondylosis with Facet Arthropathy without myelopathy . 2- Lumber degenerative disc disease POSTOPERATIVE DIAGNOSIS: 1- Lumbar spondylosis with Facet Arthropathy without myelopathy . 2- Lumber degenerative disc disease PROCEDURE: #2 Diagnostic bilateral L3 , L4 , and L5 medial branch block under fluoroscopy guidance(fluoroscopy images available in the radiology Department ) ( To target the facet joint between bilateral L4-5 , and L5-S1 ) ANESTHESIA:, Monitored anesthesia care as per anesthesia department.. EBL: Minimal COMPLICATION: None PROCEDURE INDICATION: Chronic low back pain secondary to Facet arthropathy unresponsive to conservative treatment. PROCEDURE DESCRIPTION: the patient was seen and identified in the preop holding area , risks and benefits and possible complications of the procedure and alternative were discussed with the patient, and the patient agreed to proceed with the procedure and signed the consent and vital signs monitored during the procedure and fluoroscopy was used to maximize the benefit and accuracy of the needle placement, and sedation was given to decrease patient anxiety, patient was taken to the procedure room and placed in prone position vital signs monitored in the back prepped with chlorhexidine X3 then under strict sterile technique using a right oblique fluoroscopy ,the junction of the transverse process and the superior articulating process of the right L3 , L4 , and L5 vertebra which corresponding to the fluoroscopy image of the eye of the Urban dog on the block side for the medial branches and subsequently , after local infiltration of skin and subcu tissuies with Ropivacaine 0.5 % , one mL at each level ,then 22-gauge Quincke-type needles , 3 needle was used , each one of them placed at the junction of the base of the transverse process and the superior articular process at the appropriate level, and the needle was advanced until the periosteum contacted, needle placement confirmed with AP oblique and lateral view and after appropriate needle placement confirmed, and after negative aspiration for heme and CSF and there was no paresthesia 1-1/2 mL of Ropivacaine 0.5% mixed with 20 mg Kenalog , then half mL injected at each level after negative aspiration the needle subsequently removed and the same procedure repeated for the left side at left side at L3 , L4 and L5 levels. At the end of the procedure and the needles removed and a bandage applied after the skin was cleaned the cleaning solution patient taken to recovery room in stable condition and monitors in the recovery room for 20-30 minutes and discharged home in stable condition after discharge criteria met and patient will follow up with the pain clinic in 2-4 weeks
[2020-12-25] MEDS ORDERED: LACTATED RINGERS 800 ML IV ONE (10:00)
[2020-12-25 10:27] LABS: Glucose,Whole Blood 224 mg/dL (75-99)
[2020-12-25 10:51] VITALS: BP 145/92; PULSE 87; RESP 16
--- NOTE | 2020-12-25 10:53 | FL ---
Fluoroscopy History: Pain 7 SEC FL
== END 2020-12-25 11:30 | disposition home or self-care (01) ==
LOC: ORPAIN 09:05
PROVIDERS: ATTEND Anesthesiology
DX: G89.29 Other chronic pain (principal); M47.816 Spondylosis without myelopathy or radiculopathy, lumbar region; I10 Essential (primary) hypertension; E78.5 Hyperlipidemia, unspecified; E11.9 Type 2 diabetes mellitus without complications; F43.10 Post-traumatic stress disorder, unspecified; K21.9 Gastro-esophageal reflux disease without esophagitis; Z79.4 Long term (current) use of insulin; Z79.899 Other long term (current) drug therapy
CPT/HCPCS: 64493; 64494; J2250; J3301; J2001; J3010; Q9966; J2795

== ENCOUNTER → 2021-01-13 | Outpatient (CLI) | payer OTHER ==
[2021-01-13 13:59] VITALS: BP 131/94; PULSE 109; RESP 18; TEMP 98.5
--- NOTE | 2021-01-13 14:14 | P.PN ---
Subjective Progress Note Date: 01/13/21 This is a 50-year-old gentleman with history of lower back pain with radiation to the right lower extremity down to the right foot. The patient's back pain is more intense than his right leg pain. He had a diagnostic lumbar medial branch block which gave him more than 80% of pain relief .the patient has a history of diabetes . He denies taking any anticoagulants. The patient's MRI showed right paracentral disc herniation at L5-S1 level resulting in moderate right neuroforaminal stenosis with mass effect on both the L5 and S1 nerves on the right side it also showed degenerative disc disease at L3 4 and L4 5 levels creating a moderate left neural foraminal narrowing and mild right neural foraminal narrowing at the L4 5 level. Patient denies new-onset weakness, bowel/bladder incontinence, or any other signs or symptoms of cauda equina syndrome. There are no signs of acute intoxication, and no indications of medication diversion or overuse. In addition to above, 13-point review of systems is also negative for chest pain, shortness of breath, changes in vision, changes in hearing, new onset weakness, abdominal pain, diarrhea, extreme fatigue, malaise, fever, skin changes, homicidal or suicidal ideation, or bowel or bladder incontinence. Vital Signs: Reviewed in EMR Gen: AAOx3, NAD HEENT: PERRLA,hearing grossly normal Pulm: resp unlabored Neck: supple, trachea midline Neuro exam of the lower extremities: Normal Straight leg raising test: Abhinav's test: Range of motion of the lumbar spine: Facet loading test: Tenderness in the paravertebral musculature: Positive in the lumbar area bilaterally Neuro: CN II-XII grossly intact, Imaging: Reviewed in EMR/chart Assessment: Lumbar spondylosis without myopathy with axial pain responsive to a diagnostic lumbar medial branch block Right lumbar radiculitis Lumbar neural foraminal stenosis Lumbar DDD Diabetes Plan: 1. Explanation: Opioid and psychological risk scores were reviewed. Diagnoses, prognoses, and multiple treatment options including but not limited to physical therapy, interventional therapies, adjuvant medical therapies, narcotic medication therapies, and surgery were discussed with the patient and all questions were answered to the patient's satisfaction. 2. Opioid agreement: Signed with the patient and the patient is warned not to use opioids while driving or before driving and not to combine opioids with benzodiazepines or alcohol. 3. Counseling: The patient was counseled extensively on SMOKING CESSATION, BODY MASS INDEX, EXERCISE. Specifically, the patient was instructed regarding the importance of smoking cessation, obesity, and exercise in the context of both chronic pain and overall health. 4. Procedures: Scheduled for lumbar medial branch RFA for levels L4 5 and L5-S1 bilaterally under fluoroscopic guidance. If the patient's right leg pain continues to be a problem then he might benefit from getting lumbar epidural steroid injection either in the translaminar or transforaminal approach. The patient will have to monitor his blood sugar more frequently in the immediate few days following the procedure. 5. Consultations: None 6. Investigations: None 7. Medications: None 8. Disposition: Proceed with the above-mentioned procedure as soon as possible 9. Maps were reviewed and were appropriate. Objective - Vital Signs Vital signs: Vital Signs Temp 98.5 F 01/13/21 13:56 Pulse 109 H 01/13/21 13:56 Resp 18 01/13/21 13:56 BP 131/94 01/13/21 13:56 Pulse Ox 97 01/13/21 13:56
== END ==
LOC: PNWHC3 13:51
PROVIDERS: ATTEND Anesthesiology
DX: M47.26 Other spondylosis with radiculopathy, lumbar region (principal); M51.16 Intervertebral disc disorders with radiculopathy, lumbar region; M48.061 Spinal stenosis, lumbar region without neurogenic claudication; E11.9 Type 2 diabetes mellitus without complications
CPT/HCPCS: 99211

== ENCOUNTER 2021-04-30 08:46 | Day surgery (SDC) | payer OTHER ==
[2021-04-29 10:12] VITALS: BMI 29.8
[2021-04-30 09:03] VITALS: RESP 16; TEMP 97.9
[2021-04-30] MEDS: LACTATED RINGERS 1,000 ML IV SCH ×2 (09:03→09:21)
[2021-04-30] MEDS ORDERED: LIDOCAINE 1% (10MG/ML) FOR IV START INTRADERMA ONE (09:06)
[2021-04-30 09:08] LABS: Glucose,Whole Blood 151 mg/dL (75-99)
[2021-04-30] MEDS ORDERED: ROPIVACAINE 5MG/ML 20ML VIAL ONE (09:23)
[2021-04-30] MEDS ORDERED: methylPREDNISolone ACETATE 40 MG/ML 1 ML VIAL ONE (09:23)
[2021-04-30] MEDS ORDERED: MIDAZOLAM 2 MG/2 ML VIAL ONE (09:23)
[2021-04-30] MEDS ORDERED: fentaNYL (PF) 50 MCG/ML 2 ML AMP ONE (09:23)
--- NOTE | 2021-04-30 09:47 | P.PCN ---
Date of Procedure: 04/30/21 Procedure(s) Performed: PREOPERATIVE DIAGNOSIS: 1-Lumbar Spondylosis with Facet Arthropathy without myelopathy. POSTOPERATIVE DIAGNOSIS: 1- Lumbar Spondylosis with Facet Arthropathy without myelopathy. PROCEDURES : Bilateral Radiofrequency thermocoagulation, L3 , L4 , and L5 medial branch, with fluoroscopic guidance (fluoroscopy images available in the radiology department) ( to denervate the facet joint at bilateral L4-5 ,and L5-S1 levels ). ANESTHESIA: Monitored anesthesia care ,as per anesthesia department. EBL: Minimal PROCEDURE INDICATION: The patient with low back pain secondary to lumbar facet arthropathy who had more than 50% relief of her pain with previous diagnostic lumbar medial branch block with bupivacaine. PROCEDURE DESCRIPTION / TECHNIQUE: The patient was seen and identified in the preoperative area. Risks, benefits, complications, including but not limited to risk of infection ,bleeding , allergic reactions to the medications and no complete pain releife , and alternatives were discussed with the patient, the patient agreed to proceed with the procedure and signed the consent. IV was started. Vital signs remained stable throughout the procedure. Patient was taken to the OR and time out was completed. The patient was placed in the prone position on the procedure table. The lumber area was prepped and draped in the usual sterile fashion. . Vital signs were closely monitored during the procedure .IV sedation was used during the procedure to decrease patients anxiety. Using AP and then oblique fluoroscopy, the ``eye of the Urban dog corresponding to the connection between the superior and transverse articular processes of right L3, L4, and L5 were identified, marked, and localized with 1% lidocaine. Subsequently, a 18 -oi radiofrequency cannula with a 10- mm active tip was advanced guided by fluoroscopy to each of the``eyes of the Urban dog at right L3, L4, and L5. Each site then underwent sensory testing at 50 Hz and 0 to 1 volt and motor testing at 2.5 Hz and 0 to 3 volt with local stimulation, but no radicular symptoms down the legs. Thereafter each sites underwent radiofrequency thermocoagulation at 80 degrees celsius for 90 seconds after injecting 0.5 ml of PF Ropivacaine 1ml, then after the thermocoagulation done , 1 ml of the block solution containing Depo-Medrol 20 mg and 3 ml of Ropivacaine 0.5% was injected at the right L3 , L4 , and L5 , levels after negative aspiration of CSF and blood and with no paresthesias. Cannulas were retracted while injecting lidocaine 1% until the needle is out. The same procedure was repeated at the level of Left L3, L4, and L5 levels. At the end of the procedure, the skin was cleansed and bandages were applied. COMPLICATIONS: No acute complications. DISPOSITION / PLANS: The patient was placed in a supine position and t ransferred to the recovery area in a stable condition for observation and was discharged from the recovery room after meeting discharge criteria. Home discharge instructions given to the patient by the staff. The patient was reexamined prior to discharge. The patient will schedule a follow up in the clinic in 2-4 weeks.
[2021-04-30] MEDS ORDERED: IV FLUID CONTINUATION 1,000 ML IV ONE (09:50)
--- NOTE | 2021-04-30 09:59 | FL ---
EXAMINATION TYPE: FL guided pain mgmt statistic DATE OF EXAM: 04/30/2021 HISTORY: Fluoroscopy time 10 seconds of fluoroscopy provided. IMPRESSION: 1. Fluoroscopy time.
[2021-04-30 10:08] VITALS: BP 144/97; PULSE 91
== END 2021-04-30 10:27 | disposition home or self-care (01) ==
LOC: ORPAIN 08:46
PROVIDERS: ATTEND Specialist
DX: M47.816 Spondylosis without myelopathy or radiculopathy, lumbar region (principal)
CPT/HCPCS: 64635; 64636; J2250; J1030; J3010; J2795

== ENCOUNTER → 2021-10-11 | Outpatient (CLI) | payer OTHER ==
[2021-10-11 11:07] LABS: African American GFR (CKD) >90 (>60 ml/min/1.73 sqM); Blood Urea Nitrogen 10 mg/dL (9-20); Non-African American GFR(CKD) >90 (>60 ml/min/1.73 sqM)
--- NOTE | 2021-10-11 11:23 | US ---
EXAMINATION TYPE: US abdomen complete DATE OF EXAM: 10/11/2021 COMPARISON: NONE CLINICAL HISTORY: R10.10. Right flank pain EXAM MEASUREMENTS: Liver Length: 14.3 cm Gallbladder Wall: 0.2 cm CBD: 0.5 cm Spleen: 11.2 cm Right Kidney: 11.3 x 5.8 x 6.3 cm Left Kidney: 11.8 x 6.7 x 7.5 cm Pancreas: Obscured by bowel gas Liver: difficult to penetrate Gallbladder: No stones seen Evidence for sonographic Bocanegra's sign: No CBD: wnl Spleen: accessory spleen noted. Right Kidney: No hydronephrosis or masses seen Left Kidney: cyst measures 1.5 x 1.6 x 1.7 cm. Upper IVC: wnl Abd Aorta: wnl IMPRESSION: 1. Left renal cyst.
--- NOTE | 2021-10-11 23:06 | CT ---
EXAMINATION TYPE: CT angio abdomen DATE OF EXAM: 10/11/2021 INDICATION: Abdominal pain CT DLP: 950.2 mGy.cm Automated Exposure Control for Dose Reduction was Utilized. TECHNIQUE AND CONTRAST: CT scan of the abdomen is performed without and with IV Contrast, patient injected with 100 mL of Iso antonia 370. MIP and 3-D reconstruction images were performed and reviewed. COMPARISON: Ultrasound dated 10/11/2021 FINDINGS: Normal caliber and enhancement of the abdominal aorta and major abdominal arteries without significan t stenosis, occlusion, dissection, aneurysm or AV malformation. Single renal artery supplying each ki dney. Infrarenal IVC filter. Enlarged liver measuring 18.4 cm with hepatic steatosis. No definite hepatic focal lesion by this CTA . Unremarkable gallbladder, spleen, pancreas, adrenals and right kidney. Simple left renal cyst witho ut suspicious feature. Bilateral perinephric fat stranding, nonspecific. Unremarkable nondistended st omach. The duodenum does not cross to the left side with most of the small bowel loops are seen in the right side of the abdomen which may suggest a form of abnormal bowel rotation. No evidence of bowel obstru ction. Fecal loading of the colon. Normal appendix. No suspicious abdominal lymphadenopathy or ascite s. Unremarkable lung bases. No aggressive bone lesion. IMPRESSION: No evidence of abdominal aortic aneurysm. Unremarkable CTA of the abdominal arteries. Incidental find ings as described above.
== END | disposition home or self-care (01) ==
LOC: RADUSWWP 10:33
DX: N28.1 Cyst of kidney, acquired (principal); K76.0 Fatty (change of) liver, not elsewhere classified
CPT/HCPCS: 82565; 84520; 76700; 74175; Q9967

== ENCOUNTER → 2021-10-28 | Day surgery (SDC) | payer OTHER ==
[2021-10-26 14:45] VITALS: BMI 29.8
[~2021-10-28] MED LIST changes: +INSULIN ASPART (NovoLOG) 100 UNIT/ML VIAL SQ ONE; +INSULIN ASPART (NovoLOG) 100 UNIT/ML VIAL SQ SCH; +LIDOCAINE 1% (10MG/ML) FOR IV START INTRADERMA PRN
[2021-10-28 11:09] VITALS: BP 184/88; PULSE 105; RESP 20; TEMP 98.7
--- NOTE | 2021-10-28 11:16 | P.PN ---
Progress Note - Text Progress Note Date: 10/28/21 This is 51 years old male with she of chronic severe low back pain ,he is diagnosed with lumbar degenerative disc disease, lumbar spondylosis with lumbar facet arthropathy, is here today to have caudal epidural steroid injection to help to control his low back pain, in the preop holding area ,after we discussed with the patient procedure risk ,and benefit ,we found out that his blood sugar is 311 , and because the plan is to do caudal epidural steroid injection, the best option today is to cancel the procedure ,and reschedule the procedure after the blood sugar under control, the patient given sliding-scale insulin to cover his elevated blood sugar, and patient will follow up with his primary care for blood sugar management.
[2021-10-28 11:21] LABS: Glucose,Whole Blood 311 mg/dL (75-99)
== END ==
LOC: ORPAIN 10:42
PROVIDERS: ATTEND Specialist
DX: M51.36 Other intervertebral disc degeneration, lumbar region (principal); Z53.8 Procedure and treatment not carried out for other reasons; R73.9 Hyperglycemia, unspecified; M47.816 Spondylosis without myelopathy or radiculopathy, lumbar region